=== PATIENT | male | born 1960 | race Caucasian/White ===

== ENCOUNTER 2021-12-09 19:40 | Emergency (ER) | payer BC ==
[2021-12-09] MEDS ORDERED: Sodium Chloride 0.9% 10 ML Syringe FLUSH PRN (19:45)
[2021-12-09] MEDS ORDERED: Aspirin 81 MG Tab.Chew PO ONE (19:46)
[2021-12-09] MEDS ORDERED: Metoprolol Tartrate 5 MG/5 ML SDV IVPUSH ONE (20:03)
[2021-12-09] MEDS ORDERED: Heparin Sodium 5,000 Units/ML Vial IVPUSH ONE (20:23)
[2021-12-09] MEDS ORDERED: Clopidogrel 75 MG Tab PO ONE (20:35)
[2021-12-09] MEDS: Heparin Sodium/D5W 25,000 UNITS/500 ML BAG IV SCH ×2 (20:35→22:00)
[2021-12-09] MEDS ORDERED: Metoprolol Tartrate 25 MG Tab PO ONE (20:36)
== END 2021-12-09 21:18 ==
LOC: JP.ED 19:40
DX: I25.10 Atherosclerotic heart disease of native coronary artery without angina pectoris (principal); E11.9 Type 2 diabetes mellitus without complications; E78.5 Hyperlipidemia, unspecified; I10 Essential (primary) hypertension; I48.91 Unspecified atrial fibrillation; I21.4 Non-ST elevation (NSTEMI) myocardial infarction; F17.200 Nicotine dependence, unspecified, uncomplicated; Z79.82 Long term (current) use of aspirin; Z79.899 Other long term (current) drug therapy; Z20.822 Contact with and (suspected) exposure to COVID-19
CPT/HCPCS: 36415; 80048; 83735; 84443; 84484; 85025; 85610; 85730; 93005; 93010; 96365; 96375; 99285; 99285-25; A9270-GY; J1644; J3490; U0002